=== PATIENT | male | born 1975 | race Caucasian/White ===

== ENCOUNTER 2022-06-06 18:02 | Emergency (ER) | payer BC, SELFPAY ==
--- NOTE | ~2022-06-06 | XR_ITS ---
XR chest 1V portable INDICATION: Shortness of breath, fever and chills. TECHNIQUE: 2 view chest. FINDINGS: 05/11/2018 There is mild bilateral interstitial prominence and peribronchial cuffing. There is no focal consoli dation, pleural effusion, or pneumothorax. The cardiomediastinal silhouette is normal. IMPRESSION: 1. Findings most consistent with bronchiolitis versus an atypical or viral pneumonia. Reviewed, dictated and finalized at location A. CIATE PROFESSOR OF PHYSICS IMPRESSION: 1. Findings most consistent with bronchiolitis versus an atypical or viral pne [facility] [[email or web address]].
[2022-06-06 18:05] VITALS: BP 149/97; PULSE 108; RESP 22; O2SAT 97
[2022-06-06 18:27] VITALS: PULSE 122; RESP 24; O2SAT 93
[2022-06-06] MEDS: methylPREDNISolone ACETATE 40 MG/ML VIAL 80 MG IM (18:29)
[2022-06-06] MEDS: IPRATROPIUM 0.5 MG/ALBUTEROL SULFATE 2.5 MG AMPUL.NEB 3 ML INHALATION (18:29)
[2022-06-06 18:34] VITALS: PULSE 116; RESP 22; O2SAT 96
[2022-06-06] MEDS: IBUPROFEN 400 MG TABLET 800 MG PO (18:55)
--- NOTE | 2022-06-06 19:20 | ED.SOB ---
HPI - SOB/Dyspnea General Chief Complaint: Shortness of Breath/Dyspnea Stated Complaint: trouble breathing, vomiting, fever Time Seen by Provider: 06/06/22 18:04 Source: patient and family Mode of arrival: ambulatory Limitations: no limitations History of Present Illness HPI Narrative: This is a 46-year-old gentleman that presents with his with some cough congestion with shortness of breath, has a history of asthma recently seen [facility] and had a nasal swab which was negative for influenza, the patient at that time refused a COVID swab. Currently has a temperature of 101? has used Tylenol and Motrin earlier today. There is no audible wheezing no chest pain no abdominal pain. MD elicited complaint: shortness of breath and cough Onset (ago): day(s) Context: recent illness Severity: mild Related Data Home Medications Medication Instructions Recorded Confirmed albuterol sulfate 2.5 mg/3 mL 2.5 mg inhalation QID PRN Wheezing 06/06/22 06/06/22 (0.083 %) solution for nebulization albuterol sulfate 90 mcg/actuation 1 puff inhalation Q4-6H PRN 06/06/22 06/06/22 aerosol inhaler Wheezing Allergies Allergy/AdvReac Type Severity Reaction Status Date / Time amoxicillin [From Amoxil] Allergy Rash Verified 06/06/22 18:17 Review of Systems Review of Systems: All systems reviewed & are unremarkable except as noted in HPI and below PMFSH Past Medical History Medical History Asthma Exam Const: General: no acute distress Nutritional Appearance: well nourished Orientation/consciousness: patient oriented x3 Limitations: no limitations HENMT: Face/Nose/Sinus: Normal external nose present Face and sinus: normal facial exam Mouth: Yes Normal oral and palatal mucosa present Eyes: Conjunctivae: conjunctivae normal Neck: Neck: normal visual inspection, no lymphadenopathy and no meningeal signs Chest: Chest palpation & inspection: normal inspection of the chest Resp: Effort & Inspection: normal respiratory effort Auscultation: rhonchi Cardio: Rate: regular rate Rhythm: regular rhythm GI: GI Palp: Yes Soft to palpation Auscultation: normal bowel sounds : General: Yes bladder normal to palpation Back/Spine/Pelvis: Back: no CVA tenderness Skin: General skin exam: normal color Rashes: no rashes Wounds: no wounds Neuro: General: patient oriented x3 and moves all extremities Cranial nerves: Yes Nystagmus not present Speech: normal speech Extrem: General: normal to inspection, no clubbing, cyanosis or edema and no pedal edema Psych: Mental Status: mental status grossly normal Affect: normal affect Course Course Emergency Course: chest x-ray performed is consistent with viral pneumonia, the patient declined COVID testing, patient received DuoNebs and IM Depo-Medrol and received ibuprofen mg for body aches feeling and low-grade fever. Vital Signs Vital signs: Vital Signs Pulse Rate 108 H 06/06/22 18:05 Respiratory Rate 22 H 06/06/22 18:05 Blood Pressure 149/97 H 06/06/22 18:05 Pulse Oximetry 97 06/06/22 18:05 Oxygen Delivery Room Air 06/06/22 18:05 Pulse Rate 116 H 06/06/22 18:34 Respiratory Rate 22 H 06/06/22 18:34 Blood Pressure 149/97 H 06/06/22 18:05 Pulse Oximetry 96 06/06/22 18:34 Oxygen Delivery Room Air 06/06/22 18:05 Critical Care Time Critical Care Time Critical Care Time: No Discharge Plan Discharge Clinical Impression: Viral infection Asthma with exacerbation Qualifiers: Asthma severity: moderate Asthma persistence: unspecified Qualified Code(s): J45.901 - Unspecified asthma with (acute) exacerbation Patient Disposition: Home, Self-Care Condition: Stable Instructions: Antibiotic Form, Asthma (ED), Viral Pneumonia (ED) Additional Instructions: take medicine as prescribed, drink plenty of fluids Tylenol or Motrin for body aches and fever and follow-up
[2022-06-06 20:00] VITALS: BP 129/83; PULSE 105; RESP 16; TEMP 37.1; O2SAT 92
== END 2022-06-06 20:00 | disposition home or self-care (01) ==
PROVIDERS: Emergency Provider Emergency Medicine; PCP Internal Medicine
DX: J45.901 Unspecified asthma with (acute) exacerbation (principal); B34.9 Viral infection, unspecified
CPT/HCPCS: 71045; 94640; 96372; 99283; A9270; J1030

== ENCOUNTER 2023-07-08 12:45 | Emergency (ER) | payer BC, SELFPAY ==
--- NOTE | ~2023-07-08 | CT_ITS ---
EXAMINATION: CT soft tissue neck wo con DATE: 07/08/2023 13:11 INDICATION: Neck swelling and pain. Fever and chills. Tooth abscess. TECHNIQUE: Computed tomography (CT) of the neck was performed without intravenous contrast. Automated exposure control and iterative reconstruction technique were employed. The dose-length product was 5 40.34 mGy-cm. COMPARISON: None FINDINGS: There is mild emphysema. There is a mildly enlarged left submandibular node. There is mild mucosal thickening in right maxillary sinus. The mastoid air cells are normal. The teeth are unremark able. There is mild cervical spondylosis. IMPRESSION: 1. Mildly enlarged left submandibular lymph node, likely reactive. Reviewed, dictated and finalized at location A. MANAGER
[2023-07-08 12:49] VITALS: BP 171/64; PULSE 88; RESP 18; TEMP 36.3; O2SAT 97
[2023-07-08 13:30] LABS: Basophils Absolute Auto 0.13 K/mm3 (0.00-0.10); Basophils Percent Auto 1.5 % (0.0-1.0); Eosinophils Absolute Auto 0.26 K/mm3 (0.02-0.50); Hematocrit 51.5 % (40.0-54.0); Hemoglobin 17.7 g/dL (14.0-18.0); Immature Granulocyte Absolute 0.06 K/mm3 (0.00-0.00); Immature Granulocyte Percent A 0.7 % (0.0-0.0); Lymphocytes Absolute Auto 2.64 K/mm3 (1.10-4.50); Lymphocytes Percent Auto 30.9 % (18.0-42.0); Mean Corpuscular HGB Conc 34.4 g/dL (32.0-36.0); Mean Corpuscular Hemoglobin 32.1 pg (27.0-31.0); Mean Corpuscular Volume 93.5 fL (78.0-102.0); Mean Platelet Volume 10.3 fl (8.7-11.0); Monocytes Absolute Auto 0.94 K/mm3 (0.10-0.90); Neutrophils Absolute Auto 4.5 K/mm3 (1.7-7.2); Neutrophils Percent Auto 52.9 % (50.0-70.0); Platelet Count Result 291 K/mm3 (150-420); Red Blood Count 5.51 M/mm3 (4.70-6.10); Red Cell Distribution Width 12.8 % (11.6-14.4); White Blood Count 8.5 K/mm3 (4.8-10.8)
[2023-07-08 13:47] LABS: Alanine Aminotransferase 111 U/L (16-63); Albumin Level 4.1 g/dL (3.4-5.0); Alkaline Phosphatase 114 U/L (46-116); Anion Gap 11 mmol/L (8-16); Aspartate Amino Transferase 50 U/L (15-37); Bilirubin,Total 0.6 mg/dL (0.00-1.00); Blood Urea Nitrogen 19 mg/dL (7-18); Calcium 9.7 mg/dL (8.5-10.1); Carbon Dioxide 28 mmol/L (21-32); Chloride 100 mmol/L (98-108); Estimated CRCL calculation 97 ml/min; Estimated Glomerular Filt Rate > 60; Glucose 105 mg/dL (70-99); Osmolality Calculated 290 mOsm/kg (285-295); Potassium 3.8 mmol/L (3.5-5.1); Sodium 139 mmol/L (136-145); Total Protein 8.5 g/dL (6.4-8.2)
[2023-07-08 13:52] LABS: Lactic Acid Reflex 1.1 mmol/L (0.4-2.0)
--- NOTE | 2023-07-08 13:59 | ED.GENADULT ---
HPI - General Adult General Chief complaint: Dental/Oral Stated complaint: TOOTH PAIN Time Seen by Provider: 07/08/23 12:48 Source: patient Mode of arrival: ambulatory Limitations: no limitations History of Present Illness HPI narrative: Patient is a 47-year-old male with under jaw pain and swelling for the past few days. Significantly had a tooth abscess and was on clindamycin which is still [facility] through the script at this time. He is allergic to amoxicillin. Onset (ago): week(s) (1) Location: mouth Radiation: neck ( Anteriorly) Severity: severe Severity scale (1-10): 8 Quality: aching and sharp Pain Consistency: constant Relieving factors: none Exacerbating factors: none Associated symptoms: denies other symptoms Treatments prior to arrival: other ( clindamycin) Related Data Home Medications Medication Instructions Recorded Confirmed albuterol sulfate 2.5 mg/3 mL 2.5 mg inhalation QID PRN Wheezing 06/06/22 07/08/23 (0.083 %) solution for nebulization albuterol sulfate 90 mcg/actuation 1 puff inhalation Q4-6H PRN 06/06/22 07/08/23 aerosol inhaler Wheezing Allergies Allergy/AdvReac Type Severity Reaction Status Date / Time amoxicillin [From Amoxil] Allergy Rash Verified 07/08/23 13:08 iodine Allergy Unknown Verified 07/08/23 13:08 [facility] Past Medical History Medical History Asthma Exam Const: General: healthy appearing Nutritional Appearance: well nourished Orientation/consciousness: patient oriented x3 HENMT: Head: normal to inspection Ears: external ears normal Face/Nose/Sinus: Normal external nose present Face and sinus: normal facial exam Mouth: Yes Normal oral and palatal mucosa present Teeth and gingiva: dentition normal Throat: posterior oropharynx normal Other: No obvious abscess appreciated for I and D at this time; oropharynx is clear and no airway obstruction or swelling Eyes: Conjunctivae: conjunctivae normal Pupils: Equal, round and reactive pupils present EOM: EOMs intact bilaterally Neck: Neck: not normal to visual inspection Other: tender under the jaw submandibular area with lymphadenopathy and swelling; appearance of cellulitis and lymphadenopathy Chest: Chest palpation & inspection: normal inspection of the chest Resp: Effort & Inspection: normal respiratory effort and not labored Auscultation: clear to auscultation bilaterally and no crackles Cardio: Rate: regular rate Rhythm: regular rhythm Heart sounds: no murmurs GI: Inspection: non-distended GI Palp: Yes Soft to palpation, No Tenderness to palpation present (GI) and No Guarding due to palpation present (GI) Auscultation: normal bowel sounds : General: Yes bladder normal to palpation Back/Spine/Pelvis: Back: no CVA tenderness Skin: General skin exam: normal color Rashes: no rashes Wounds: no wounds Neuro: General: patient oriented x3 Cranial nerves: Yes Nystagmus not present Speech: normal speech Extrem: General: normal to inspection Psych: Mental Status: mental status grossly normal Affect: normal affect Attitude: cooperative Course Vital Signs Vital signs: Vital Signs Oxygen Delivery Room Air 07/08/23 12:45 Temperature 36.3 C L 07/08/23 12:49 Pulse Rate 88 07/08/23 12:49 Respiratory Rate 18 07/08/23 12:49 Blood Pressure 171/64 H 07/08/23 12:49 Pulse Oximetry 97 07/08/23 12:49 Oxygen Delivery Room Air 07/08/23 12:49 Medical Decision Making [facility] Narrative Medical decision making narrative: patient is a 47-year-old male with failing outpatient clindamycin for a recent dental abscess and infection under the jaw. Workup was only positive for lymphadenopathy in the CT scan of the neck. 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 We will do steroids and Levaquin and Flagyl and Toradol for pain. I will call in some Ultram. Come back to the ER if oral swelling. Vital Si
--- NOTE | 2023-07-08 14:03 | PC.NURSE ---
ERP AT BEDSIDE. PT DENIES ANY NEEDS OR COMPLAINTS. PT IS AWAITING RESULTS. WILL CONTINUE TO MONITOR.
[2023-07-08] MEDS: metroNIDAZOLE 250 MG TABLET 500 MG PO (14:19)
[2023-07-08] MEDS: levoFLOXacin TAB 500 MG, levoFLOXacin TAB 250 MG 750 MG PO (14:20)
[2023-07-08] MEDS: KETOROLAC (*BKC) 60 MG/2 ML VIAL IM (14:21)
[2023-07-08] MEDS: predniSONE 20 MG TABLET 40 MG PO (14:25)
[2023-07-08 15:05] VITALS: BP 170/88; PULSE 80; RESP 18; O2SAT 98
--- NOTE | 2023-07-14 14:21 | PC.NURSE ---
Final blood culture report, no growth after 5 days, no further action or treatment needed.
== END 2023-07-08 15:05 | disposition home or self-care (01) ==
PROVIDERS: Emergency Provider Emergency Medicine; PCP Internal Medicine
DX: K12.2 Cellulitis and abscess of mouth (principal); J45.909 Unspecified asthma, uncomplicated
CPT/HCPCS: 36415; 70490; 80053; 83605; 85025; 87040; 96372; 99284; A9270; J1885; J7512